=== PATIENT | female | born 1980 | race Caucasian/White ===

== ENCOUNTER 2016-11-02 14:29 | Emergency (ER) | payer OTHER ==
[~2016-11-02] VITALS: Ht 160 cm; Wt 99.0 kg
[~2016-11-02 14:29] MED LIST: ALBUTEROL SULF8.5 GM IH; ANAPROX DS550 M1 PO; BACTRIM,SEPT1 TABLET PO; BENTYL20 MG PO; FLEXERIL10 MG PO; FLOVENT 22120 INHALA; HYDROCODON-ACE1 EAC7 PO; LYRICA150 MG PO; MOTRIN600 MG PO; MOTRIN800 MG PO; NAPROSYN-EC500 MG PO; NAPROSYN375 MG; NAPROXEN500 MG PO; NOHOMEMEDS; NORCO 5/3251 TABLET PO; OXYCODONE-APAP1 EACH PO; PERCOCET 10-321 EACH; PERCOCET 5/31 TABLET PO; PERCOCET 7.51 TABLET; PERCOCET 7.51 TABLET PO; PREDNISONE10 M1 PO; PRILOSEC20 MG PO; PROVENTIL,2.5 MG/3 M IH; VENTOLIN HFA18 GM IH; ZANTAC150 MG PO
[2016-11-02 15:43] LABS: MCH 26.5 PG (29.0-34.0); MCHC 32.2 G/DL (30.0-36.0); MCV 82.3 FL (83-99); MEAN PLAT.VOLUME 9.2 uM^3 (9.5-12.4); PLATELET COUNT 373 K/uL (156-360); RBC DIS.WIDTH-SD 41.3 % (39-53); RED BLOOD COUNT 4.98 M/uL (3.80-5.20)
[2016-11-02 15:52] LABS: ADD MIUA? NO; BILIRUBIN NEGATIVE; BLOOD NEGATIVE; COLOR YELLOW ((YELLOW)); GLUCOSE (STRIP) NEGATIVE; KETONES NEGATIVE; LEUKOCYTES NEGATIVE; NITRITE NEGATIVE; PROTEIN (STRIP) NEGATIVE; SPECIFIC GRAVITY 1.018 (1.000-1.030); UCUL ADDED? NO; UROBILINOGEN 0.2 MG/DL (0.2-1.0)
[2016-11-02 15:54] LABS: CHLORIDE 106 mEq/L (99-109); POTASSIUM 4.2 mEq/L (3.7-5.4); SODIUM 140 mEq/L (136-147)
[2016-11-02 15:56] LABS: GLUCOSE 93 mg/dL (70-99)
[2016-11-02 15:57] LABS: ANION GAP 9 MEQ/L (2-14)
[2016-11-02 15:58] LABS: TOTAL BILIRUBIN 0.3 mg/dL (0.0-1.0)
[2016-11-02 15:59] LABS: ALKALINE PHOSPHATASE 69 IU/L (3-129)
[2016-11-02 16:00] LABS: GFR ESTIMATE (CALCULATED) > 59 mL/min/
[2016-11-02 16:01] LABS: UREA NITROGEN (BUN) 13 mg/dL (9-23)
[2016-11-02 16:03] LABS: LIPASE 4 U/L (1.0-51.0)
[2016-11-02 16:08] LABS: QUANTITATIVE HCG < 4.0 MIU/ML
[2016-11-02] MEDS ORDERED: NAPROSYN500 MG PO (18:36)
[2016-11-02 18:44] VITALS: BP 133/84
== END 2016-11-02 18:45 | disposition home or self-care (01) ==
LOC: EME 14:29
PROVIDERS: Physician Assistant Medical
DX: N83.202 Unspecified ovarian cyst, left side (principal); J45.909 Unspecified asthma, uncomplicated; F17.200 Nicotine dependence, unspecified, uncomplicated
CPT/HCPCS: 76856; 80053; 81003; 83690; 84702; 85027; 99281; 99283

== ENCOUNTER 2017-01-17 22:20 | Emergency (ER) | payer OTHER ==
[~2017-01-17] VITALS: Ht 160 cm; Wt 94.5 kg
[~2017-01-17 22:20] MED LIST changes: +NAPROSYN500 MG PO
[2017-01-18 00:29] VITALS: BP 136/82
== END 2017-01-18 00:29 | disposition home or self-care (01) ==
LOC: EME 22:20
DX: R51 Headache (principal); F17.200 Nicotine dependence, unspecified, uncomplicated
CPT/HCPCS: 99281; 99284

== ENCOUNTER 2017-03-04 09:12 | Emergency (ER) | payer OTHER ==
[~2017-03-04] VITALS: Ht 160 cm; Wt 95.0 kg
[2017-03-04 09:58] LABS: HEMATOCRIT 41.2 % (36.0-46.0); MCH 26.5 PG (29.0-34.0); MCHC 31.6 G/DL (30.0-36.0); MCV 84.1 FL (83-99); MEAN PLAT.VOLUME 9.8 uM^3 (9.5-12.4); PLATELET COUNT 378 K/uL (156-360); RBC DIS.WIDTH-SD 43.1 % (39-53); WHITE BLOOD COUNT 11.7 K/uL (4.1-10.2)
[2017-03-04 11:20] LABS: ADD MIUA? YES; BILIRUBIN NEGATIVE; BLOOD LARGE; COLOR YELLOW ((YELLOW)); GLUCOSE (STRIP) NEGATIVE; KETONES NEGATIVE; LEUKOCYTES NEGATIVE; NITRITE NEGATIVE; PROTEIN (STRIP) NEGATIVE; SPECIFIC GRAVITY 1.021 (1.000-1.030); UROBILINOGEN 0.2 MG/DL (0.2-1.0)
[2017-03-04 11:30] LABS: BACTERIA RARE /HPF; EPITHELIAL CELLS RARE /HPF; HYALINE CASTS 0-5 /LPF; MUCUS 1+ /LPF; RED BLOOD CELLS TNTC /HPF (0-5); UCUL ADDED? YES; WHITE BLOOD CELLS 0-5 /HPF (0-5)
[2017-03-04 14:18] VITALS: BP 141/77
== END 2017-03-04 14:20 | disposition home or self-care (01) ==
LOC: EME 09:12
DX: N93.9 Abnormal uterine and vaginal bleeding, unspecified (principal); J45.909 Unspecified asthma, uncomplicated; F17.200 Nicotine dependence, unspecified, uncomplicated
CPT/HCPCS: 76856; 81003; 84702; 85027; 86900; 86901; 87077; 87086; 87186; 99281; 99284

== ENCOUNTER 2017-08-26 13:05 | Emergency (ER) | payer OTHER ==
[~2017-08-26] VITALS: Ht 160 cm; Wt 93.0 kg
[2017-08-26] MEDS ORDERED: TRAMADOL HCL50 MG PO (15:51)
[2017-08-26 16:01] VITALS: BP 129/83
== END 2017-08-26 16:02 | disposition home or self-care (01) ==
LOC: EME 13:05
DX: M25.562 Pain in left knee (principal); J45.909 Unspecified asthma, uncomplicated; G43.909 Migraine, unspecified, not intractable, without status migrainosus; Z86.718 Personal history of other venous thrombosis and embolism; Z88.5 Allergy status to narcotic agent; Z88.8 Allergy status to other drugs, medicaments and biological substances; F17.200 Nicotine dependence, unspecified, uncomplicated
CPT/HCPCS: 93971; 99281; 99284

== ENCOUNTER 2017-10-05 11:06 | Emergency (ER) | payer OTHER ==
[~2017-10-05] VITALS: Ht 165.1 cm; Wt 96.4 kg
[~2017-10-05 11:06] MED LIST changes: +TRAMADOL HCL50 MG PO
[2017-10-05 12:26] LABS: HEMATOCRIT 40.4 % (36.0-46.0); HEMOGLOBIN 13.3 G/DL (11.9-15.5); MCH 27.6 PG (29.0-34.0); MCHC 32.9 G/DL (30.0-36.0); MCV 83.8 FL (83-99); PLATELET COUNT 373 K/uL (156-360); RBC DIS.WIDTH-SD 43.3 % (39-53); RED BLOOD COUNT 4.82 M/uL (3.80-5.20); WHITE BLOOD COUNT 10.9 K/uL (4.1-10.2)
[2017-10-05 12:39] LABS: ALBUMIN 3.9 g/dL (3.2-4.8); CHLORIDE 108 mEq/L (99-109); POTASSIUM 4.1 mEq/L (3.7-5.4); SODIUM 140 mEq/L (136-147)
[2017-10-05 12:41] LABS: GLUCOSE 89 mg/dL (70-99); TOTAL PROTEIN 6.5 g/dL (6.4-8.3)
[2017-10-05 12:43] LABS: TOTAL BILIRUBIN 0.3 mg/dL (0.0-1.0)
[2017-10-05 12:44] LABS: APPEARANCE SL.HAZY ((CLEAR)); BILIRUBIN NEGATIVE; BLOOD NEGATIVE; COLOR YELLOW ((YELLOW)); GLUCOSE (STRIP) NEGATIVE; KETONES NEGATIVE; LEUKOCYTES NEGATIVE; NITRITE POSITIVE; PROTEIN (STRIP) NEGATIVE; UROBILINOGEN 0.2 MG/DL (0.2-1.0)
[2017-10-05 12:45] LABS: ALKALINE PHOSPHATASE 79 IU/L (3-129); CREATININE 0.8 mg/dL (0.6-1.3); GFR ESTIMATE (CALCULATED) > 59 mL/min/
[2017-10-05 12:46] LABS: UREA NITROGEN (BUN) 13 mg/dL (9-23)
[2017-10-05 12:47] LABS: AST (GOT) 17 IU/L (2-34)
[2017-10-05 12:48] LABS: ALT (GPT) 25 IU/L (3-49)
[2017-10-05 12:52] LABS: BACTERIA RARE /HPF; EPITHELIAL CELLS 1+ /HPF; MUCUS TRACE /LPF; RED BLOOD CELLS 0-5 /HPF (0-5); UCUL ADDED? NO; WHITE BLOOD CELLS 0-5 /HPF (0-5)
[2017-10-05] MEDS ORDERED: PERCOCET 5/31 TABLET PO (15:03)
[2017-10-05] MEDS ORDERED: KEFLEX500 MG PO (15:03)
[2017-10-05 16:26] VITALS: BP 129/80
== END 2017-10-05 15:03 | disposition home or self-care (01) ==
LOC: EME 11:06
DX: M54.5 Low back pain (principal); M25.552 Pain in left hip; N39.0 Urinary tract infection, site not specified; Z87.442 Personal history of urinary calculi; Z86.718 Personal history of other venous thrombosis and embolism; F17.200 Nicotine dependence, unspecified, uncomplicated
CPT/HCPCS: 74176; 80053; 81003; 85027; 99281; 99285; J1885; J7030

== ENCOUNTER 2017-11-20 19:52 | Emergency (ER) | payer OTHER ==
[~2017-11-20] VITALS: Ht 167.6 cm; Wt 95.0 kg
[~2017-11-20 19:52] MED LIST changes: +KEFLEX500 MG PO
[2017-11-20 20:26] LABS: HEMATOCRIT 38.4 % (36.0-46.0); HEMOGLOBIN 12.9 G/DL (11.9-15.5); MCH 27.9 PG (29.0-34.0); MCHC 33.6 G/DL (30.0-36.0); MCV 83.1 FL (83-99); PLATELET COUNT 406 K/uL (156-360); RBC DIS.WIDTH-CV 13.7 % (11.8-14.6); RBC DIS.WIDTH-SD 41.7 % (39-53); RED BLOOD COUNT 4.62 M/uL (3.80-5.20); WHITE BLOOD COUNT 12.1 K/uL (4.1-10.2)
[2017-11-20 20:36] LABS: CHLORIDE 106 mEq/L (99-109); POTASSIUM 3.5 mEq/L (3.7-5.4); SODIUM 142 mEq/L (136-147)
[2017-11-20 20:38] LABS: GLUCOSE 103 mg/dL (70-99)
[2017-11-20 20:42] LABS: CREATININE 0.8 mg/dL (0.6-1.3); GFR ESTIMATE (CALCULATED) > 59 mL/min/; UREA NITROGEN (BUN) 15 mg/dL (9-23)
[2017-11-20] MEDS ORDERED: VENTOLIN HFA18 GM IH (21:38)
[2017-11-20] MEDS ORDERED: MEDROL DOSEPAK4 MG PO (21:38)
[2017-11-20] MEDS ORDERED: ALLEGRA-D 121 TABLET PO (21:38)
[2017-11-20 21:49] VITALS: BP 144/89
== END 2017-11-20 21:51 | disposition home or self-care (01) ==
LOC: EME 19:52
DX: J06.9 Acute upper respiratory infection, unspecified (principal); J45.909 Unspecified asthma, uncomplicated; F17.200 Nicotine dependence, unspecified, uncomplicated; Z86.718 Personal history of other venous thrombosis and embolism; Z88.5 Allergy status to narcotic agent
CPT/HCPCS: 71046; 80048; 85027; 94640; 99281; 99284; J7512